=== PATIENT | female | born 1975 | race Caucasian/White ===

== ENCOUNTER 2021-04-14 10:04 | Day surgery (SDC) | payer SELFPAY ==
--- NOTE | 2021-04-10 15:13 | NURSING ---
Pt states her D-dimer has been elevated; her PCP and [facility] are aware. Pt asks if the D-dimer will be checked with her other lab work that is to be ordered for 04/13/21. Dr Ludwig notified. No repeat D-dimer needed.
--- NOTE | 2021-04-13 11:16 | HP.PCM_ITS ---
History and Physical Date of Admission: 04/14/21 NAME: Kalyani Navarrete [facility] NO: [id number] DATE: 03/09/2021? PRESENTING COMPLAINT Kalyani Navarrete is a 46 year old female presents with complaint of epigastric abdominal pain that radiates to the right side. She denies nausea/emesis. She denies fevers. She denies constipation/diarrhea. She states that the pain is a severe dull ache with occasional sharp twinges. She also had a fullness discomfort and this sometimes causes shortness of breath because she can't take a deep breath due to the pain. She states that this began worsening about two weeks ago, but she had minor episodes prior to this. She denies biliary obstructive symptoms such as jaundice/icterus. HIDA scan 03/05/2021 EF 5% US RUQ 07/29/2011 - cholelithiasis with mild gallbladder wall thickening ? CURRENT MEDICATIONS ? PARoxetine (PAXIL) 20 mg tablet Take 1 tablet by mouth once daily. 30 tablet 5 ? ALLERGIES: Patient has no known allergies. ?? PAST MEDICAL HISTORY Calculus of gallbladder without mention of cholecystitis or obstruction ? Calculus of kidney 10/14/2007 Dysthymic disorder ? Depression (non-psychotic) Thrombosed external hemorrhoid 03/21/2010 ? PAST SURGICAL HISTORY MIRENA ? 2013 PAST SURGICAL HISTORY OF? thrombosed hemorrhoid - s/p removal ? FAMILY HISTORY ? Breast Cancer Mother? ONSET AGE 50 ? No Known Problems Sister ? ? other (Lyme disease) Sister ? ? No Known Problems Sister ? ? No Known Problems Brother ? ? No Known Problems Brother ? ? No Known Problems Brother ? ? No Known Problems Brother ? ? Diabetes Maternal Grandmother ? ? Hypertension Maternal Grandmother ? ? Stroke Maternal Grandfather ? ? Prostate Cancer Paternal Grandfather ? ?? SOCIAL HISTORY ? Smoking status: Never Smoker ? Smokeless tobacco: Never Used Vaping Use ? Vaping Use: Never used Substance Use Topics ? Alcohol use: No ? Drug use: No ?? REVIEW OF SYSTEMS: General - denies fevers, denies anorexia, denies weight loss Cardiovascular - denies chest pain, denies history of [place] Pulmonary - denies shortness of breath, denies coughing up blood Gastrointestinal - see HPI, denies hematemesis, notes occasional blood on toilet paper from hemorrhoids Neurological - denies seizures, denies chronic numbness/weakness of extremities Genitourinary - has had kidney stones, denies burning with urination, denies blood in urine Hematological - denies spontaneous/prolonged bleeding Skin - denies nonhealing skin wounds Musculoskeletal - denies chronic joint pain Endocrine - denies diabetes, no thyroid problems Psychological ? denies hallucinations ?? PHYSICAL EXAMINATION Ht: 5'8 Wt: 236# General: alert and appropriate, in no distress and well-hydrated, well nourished, Psych: Appropriate mood and interaction Skin: no rash noted, Head: normocephalic, no abnormality or lesion noted, Eyes: visual acuity is grossly normal, no injection, and EOMI, Ears: external ears normal without erythema or edema, Nose: external nose normal without rhinorrhea, Oropharynx: moist mucus membranes Neck: full ROM, no cervical LNs noted, Respiratory: breathing non-labored, and no grunting/flaring/retractions, Chest: equal chest rise with normal respiratory effort, Abdomen: flat appearing. Visible protrusions or hernias: No Incisions/scars: None Areas of pain/tenderness: none noted Neuro: Patient sitting with normal appearing strength and coordination. No focal motor deficits. ?? IMPRESSION cholelithiasis ? PLAN I have discussed the above with the patient. I have offered laparoscopic cholecystectomy, possible cholangiograms I have explained the procedure to the patient. I have counseled the patient as to the risks of the procedure, including but not limited to: infection, bleeding, injury to any blood vessels/nerves, scar tissue, intraabdominal abscess/bleeding, injury to any intraabdominal organs such as liver/spleen, injury to the common bile duct/biliary tree, bile leak, trocar hernias, wound infections,complications of anesthesia, etc. ? the patient understands. ? The patient was offered a surgery/procedure . The provider and patient have discussed in detail the risk of exposure to and/or potential harm posed by the COVID-19 virus with having a surgery/procedure at this time versus the risk of? delaying the surgery/procedure. It is not possible to know either the risk of delaying the surgery or procedure or chance of getting an infection with perfect accuracy, but a joint decision was made between the patient and the provider ?to proceed at this time with the scheduled surgery/procedure. The patient wishes to proceed. I have answered all questions to the patient?s satisfaction and the patient has no further questions. ? ? ? Ciara Alan MD NAME: Kalyani Khadar [facility] NO: [id number]
--- NOTE | 2021-04-13 12:22 | EKG12_ITS ---
Test Reason : PRE OP Blood Pressure : / mmHG Vent. Rate : 085 BPM Atrial Rate : 085 BPM P-R Int : 144 ms QRS Dur : 080 ms QT Int : 366 ms P-R-T Axes : 061 002 029 degrees QTc Int : 435 ms Normal sinus rhythm Normal ECG Confirmed by QUE FLORENCE, NAZANIN ([id number]), newspaper photo editor EDGAR GRAHAM ([id number]) on 04/14/2021 8:39:58 AM Referred By: Ciara Alan Confirmed By:NAZANIN GREY MD
[2021-04-13 13:32] LABS: Hematocrit 39.5 % (37-47); Mean Corp Hgb Conc 32.9 g/dL (32-36); Mean Corpuscular Hgb 29.5 pg (27.0-32.0); Mean Corpuscular Volume 89.8 fL (81-99); Mean Platelet Vol. 10.1 fl (6.2-12.0); Platelet Count 253 K/mm3 (150-450); RBC Distribution Width CV 12.8 % (11.6-14.6); RBC Distribution Width SD 41.7 fl (35.1-43.9)
[2021-04-13 13:55] LABS: Anion Gap 3 (5-15); BUN 10 mg/dL (7-18); BUN/Creat Ratio 12.2 RATIO (10-20); Calcium,Total 8.7 mg/dL (8.5-10.1); Chloride 103 mmol/L (98-107); Creatinine, Serum 0.82 mg/dL (0.55-1.02); EST Glomerular Filtration Rate 80 mL/min (>60); Est Glom Filt Rate - Afr Amer 97 mL/min (>60); Glucose 79 mg/dL (74-106); Potassium 4.1 mmol/L (3.5-5.1); Sodium Level 139 mmol/L (136-145)
[2021-04-14] VITALS (9 sets, daily range): BP systolic 105–132; BP diastolic 55–80; PULSE 82–94; RESP 14–16; TEMP 36–37; O2SAT 92–98; BMI 37.3
--- NOTE | 2021-04-14 | GALL_PTH ---
PATIENT: STEVEN ROGERS LOC: [facility] [place] U#:[id number] AGE/SX: 46/F ROOM: RE04/14/[address]: Dr. Ciara Alan MD : 1975 BED: DIS: 04/14/2021 SPEC #: [id number] RECD: 04/14/21 13:38 STATUS: KYMBERLY REWilman #: [id number] JAYME: 04/14/21 00:[address]: Ciara Alan DEPT: SURGICAL PATHOLOGY RECD BY: Carlos Rossi ENTERED: 04/15/21 07:52 SP TYPE: QUITA DAVIDSON DR: Dr. Albino Sims DO Tissues: Gallbladder, NOS Procedures: Surgery Specimen Level III HEADER OPERATION: Laparoscopic cholecystectomy with IOC PRE-OP DIAGNOSIS: RUQ abdominal pain, abnormal HIDA scan TISSUE SUBMITTED: Gallbladder MICROSCOPIC DIAGNOSIS Gallbladder, cholecystectomy: Chronic cholecystitis and cholelithiasis. AM:petros 04/16/2021 MICROSCOPIC DESCRIPTION Slides are reviewed. GROSS DESCRIPTION Received is one container labeled with the patient's name and designated gallbladder. The specimen consists of a gallbladder measuring 8 cm in length and up to 3 cm in diameter. The external surface is pink-marcos, smooth and glistening for the most part. Focally it is granular, hemorrhagic and contains cautery artifact. The gallbladder contains green-yellow mucoid bile and one mulberry, ovoid, greenish-yellow stone measuring 1.2 cm in greatest dimension. The mucosa is bile-stained and without any mass lesions. The gallbladder wall measures up to 0.3 cm in thickness. It Quality Assurance Analyst sections from the gallbladder and the cystic duct are submitted in one cassette. / SJ:rg 04/15/21 TC:3 [facility]: [id number]
[2021-04-14] MEDS: Lactated Ringers 1,000 ML 75 ML IV ×2 (09:50→12:30)
[2021-04-14 10:34] LABS: Internal QC Validated? YES +Cl - CLEAR BKGD; Pregnancy, Urine Negative Negative
--- NOTE | 2021-04-14 11:45 | PCM.OPRPT ---
Report of Operation Date of Procedure: 04/14/21 Pre-Operative Diagnosis: RUQ abdominal pain, abnormal HIDA scan Post-Operative Diagnosis: same Surgery/Procedure Performed:: laparoscopic cholecystectomy with cholangiograms Description of Surgical Findings:: normal IOC Surgeon: Ciara Alan graduating machine operator: Macy Mcclendon Type of Anesthesia: General Anesthesiologist: Lyndon Phoenix Specimen's removed: gallbladder and contents Drains: none Estimated Blood Loss (mL): < 10 ml Fluids Replaced: 1600 ml RL Description of Procedure: After informed consent was given, the patient was brought to the Operating Room. Appropriate time out protocol was followed. The patient was placed in the supine position. The patient was then placed under general endotracheal anesthesia by the anesthesia provider. The abdomen was then prepped with a sterile surgical skin preparation and sterile surgical drapes were placed. An area superior to the umbilical dimple was grasped with penetrating clamps and the skin and subcutaneous tissues were infiltrated with 0.25% marcaine with epinephrine. A skin incision was then made with a 15 blade scalpel. The anterior abdominal wall was elevated and an 11 mm trocar was placed in the patient's abdomen via a ventral hernia that was just superior to the umbilical dimple. A CO2 pneumoperitoneum was then created. A 10mm laparoscope was then inserted into the trocar and careful attention was directed to the intraabdominal contents. There was no evidence of injury to any intraabdominal organs from insertion of the trocar. Under direct visualization, a 5mm subxiphoid trocar and two lateral 5mm right subcostal trocars were placed. The skin and subcutaneous tissues at these sites were infiltrated with 0.25% marcaine with epinephrine prior to placement of these trocars. Attention was then directed to the right upper quadrant of the abdomen. Graspers were placed in the lateral trocars to grasp the distal aspect of the gallbladder and direct it cephalad and to grasp the gallbladder at Palomares?s pouch and direct it laterally. Dissection then began on the proximal gallbladder continuing down to the area of the triangle of Calot to bluntly dissect out the cystic duct. The neck of the gallbladder was identified and blunt dissection continued to dissect out a segment of the cystic duct. A clip was then placed on the neck of the gallbladder. A small ductotomy was then made. A Ranfac catheter was brought in through a separate skin incision and placed into the cystic duct. An intraoperative cholangiogram was performed under fluoroscopy. The xray revealed no lesions in the common bile duct, arborization of the biliary tree, and good flow into the duodenum. The Ranfac catheter was then removed and two clips were placed proximal to the ductotomy and the cystic duct was then transected. The cystic artery was visualized and bluntly isolated and then two clips were placed proximally and one clip distally and then it was transected between the proximal and distal clips. The gallbladder was then from the liver bed using electrocautery. Once from the liver bed, it was brought out via the umbilical port, in an Endobag. It was then forwarded to pathology for analysis. The liver bed was carefully examined. There was no evidence of bile leakage or bleeding. The cystic duct stump and cystic artery stump had their clips intact and there was no evidence of bile leakage or bleeding. The remainder of the abdomen was grossly normal. The CO2 was released and all trocars removed intact. The periumbilical fascia was approximated with a [id number] 0 vicryl suture. All skin incision were closed with 4-0 monocryl in a subdermal fashion. Cavilol and Steristrips were used to reinforce the skin closure. Sterile dressings were applied to all wounds. Sponge, needle and instrument count was verified and correct at time of skin closure. The patient was extubated and brought to the Recovery Room in stable condition. Complications none noted Admit VTE Documentation VTE Present on Admission: Yes VTE Mechan Device Prophylaxis: SCD's
--- NOTE | 2021-04-14 12:26 | RAD_ITS ---
STUDY: INTRAOPERATIVE CHOLANGIOGRAM. REASON FOR EXAM: Female, 46 years old. PAIN FLUOROSCOPY TIME (if supplied): ( 3.4 seconds ) minutes/seconds. One image was submitted. TECHNIQUE: An intraoperative cholangiogram was performed by the surgeon. Imaging was submitted. COMPARISON: None. FINDINGS: The visualized intrahepatic biliary ducts are unremarkable. The proximal portion of the common bile duct is unremarkable. The distal portion of the common bile duct is not well seen although contrast is seen in the duodenum. RAD/Cholangiogram/ O R,Initial IMPRESSION: The distal portion of the common bile duct is not well visualized although contrast is seen in the duodenum. Electronically Signed: Andriy Santiago MD at 14:31 EDT , Service support ,
--- NOTE | 2021-04-14 13:11 | EX.PCM.DISCH ---
Discharge Instructions Follow Up Care Test Results: Test results from this visit will be discussed in further detail at your follow-up appointment, if applicable. Discharge Plan Admission Attending Provider: Ciara Alan Primary Care Provider: Albino Sims Instructions Additional Instructions / Restrictions: Recommended pain control regimen - May take 600 mg ibuprofen (Motrin) and then in 3-4 hours, may take 650 mg acetaminophen (Tylenol), then in 3-4 hours may take 600 mg ibuprofen, then in 3-4 hours may take 650 mg acetaminophen and so on for 2-3 days May take narcotic pain medication for pain that is not controlled by above and at night for comfort through the night Leave dressings in place May shower, do not scrub in the areas of the dressings as they may unravel. If they become overly soiled you may remove them but leave incision site open to air. Do not soak - no tub baths/swimming Ice applied to areas of discomfort may help No lifting/pushing/pulling greater than 20 pounds for two weeks. Regular diet as tolerated, drink plenty of fluids. Avoid carbonated beverages for a few days as this will cause abdominal bloating and thus discomfort after our surgery. Please call my office for an appointment to see me in 1-2 weeks. Office number is and ask the hoisting machine operator for the general surgery nurses desk Discharge Orders/Prescriptions Prescriptions: New hydrocodone-acetaminophen 5-325 mg tablet 1 tab PO Q8H 5 Days Qty: 15 RF: 0 No Action buspirone 5 mg Tablet 5 mg PO DAILY PRN PRN (Reason: Anxiety) RF: 0 paroxetine HCl 20 mg Tablet 20 mg PO DAILY RF: 0 Referrals / Follow Up: Albino Sims DO [Primary Care Provider] - Disposition Disposition (needs filled in before D/C Order can be placed): Home, Self Care
[2021-04-14] MEDS: HYDROcodone Bitartrate/Apap 5/325 Tablet PO (15:10)
== END 2021-04-14 15:55 | disposition home or self-care (01) ==
LOC: SDC 10:09 → AC 10:10
PROVIDERS: Anesthesiology; PCP Student in an Organized Health Care Education/Training Program; Referring Provider Surgery; Visit Provider Surgery
PROC: (CPT 47610; principal; 2021-04-14 11:25)
DX: K80.10 Calculus of gallbladder with chronic cholecystitis without obstruction (principal); K21.9 Gastro-esophageal reflux disease without esophagitis; F41.9 Anxiety disorder, unspecified; F32.9 Major depressive disorder, single episode, unspecified; Z79.899 Other long term (current) drug therapy
CPT/HCPCS: 47563; 36415; 74300; 76000; 80048; 81025; 85027; 87426; 88304; 93005; C9803; J7120; A4216; J2405

== ENCOUNTER 2022-02-09 12:00 | Emergency (ER) | payer OTHER, SELFPAY ==
[2022-02-09 12:00] VITALS: BP 141/88; PULSE 92; RESP 18; TEMP 36.6; O2SAT 99; BMI 37.5
--- NOTE | 2022-02-09 12:21 | RAD_ITS ---
STUDY: X-RAY CHEST REASON FOR EXAM: Female, 47 years old. chest pain shortness of breath for 2 days TECHNIQUE: Frontal portable view of the chest COMPARISON: None. FINDINGS: The lungs are clear and expanded. There is no demonstrated pleural abnormality. Normal size heart. Normal mediastinum and mayra. Normal visualized pulmonary arteries. Normal visualized aortic arch and descending thoracic aorta. Normal visualized thoracic spine. Normal visualized ribs, clavicles, and shoulders. There is no demonstrated abnormality of the visualized soft tissue structures of the upper abdomen. RAD/Chest 1 View (Portable) IMPRESSION: Normal x-ray examination of the chest. Electronically Signed: Doris Garcia MD at 13:00 EDT ,
--- NOTE | 2022-02-09 12:21 | EKG12_ITS ---
Test Reason : CP Blood Pressure : / mmHG Vent. Rate : 091 BPM Atrial Rate : 091 BPM P-R Int : 146 ms QRS Dur : 080 ms QT Int : 362 ms P-R-T Axes : 059 -01 019 degrees QTc Int : 445 ms Normal sinus rhythm Normal ECG Confirmed by KEYONA FLORENCE, DOMENIC ([id number]), editor index EDGAR GRAHAM ([id number]) on 02/11/2022 7:21:40 AM Referred By: PL/AR Confirmed By:DOMENIC RAND MD
--- NOTE | 2022-02-09 12:21 | ED.VIS.CHEST ---
HPI History of Present Illness Chief Complaint: Chest Pain Narrative Narrative: Patient denies significant past medical history presents with chest pain that she has had for the last 2 days. Its been relatively constant. She describes it as a pressure sensation in the substernal area sometimes radiating up and down. Also, sometimes it goes to the left side of her chest. She denies any fevers but has had occasional chills. No cough. She feels short of breath at times. No diaphoresis. No nausea or vomiting. No abdominal pain or swelling of her legs. She denies any early coronary artery disease in her family. No exacerbating or alleviating factors to her chest pressure. [facility] Medical History Acute bronchitis, unspecified Anxiety Depression Encounter for screening for COVID-19 Gallbladder attack Gastric reflux History of cardiac monitoring History of COVID-19 History of irregular heartbeat Non-smoker Wears contact lenses Home Medications buspirone 5 mg PO DAILY PRN PRN 04/10/21 [History Last Taken Unknown] paroxetine HCl 20 mg PO DAILY 04/10/21 [History Last Taken Unknown] hydrocodone-acetaminophen 1 tab PO Q8H 5 Days #15 tab 04/14/21 [Rx Last Taken Unknown] amoxicillin 875 mg-potassium clavulanate 125 mg tablet 1 tab PO BID #20 tab 09/30/21 [Rx Last Taken Unknown] Allergy/AdvReac Type Severity Reaction Status Date / Time epidural med Allergy Other Uncoded 02/09/22 12:01 Family History Mother Breast cancer Surgical History History of History of wisdom tooth extraction Social History Smoking Status: Never smoker alcohol intake: never substance use type: does not use ROS ROS ED ROS Narrative Constitutional: No fever, rare chills. HEENT: No sore throat. No neck pain. No loss of vision. No rhinorrhea. Cardiovascular: Midsternal chest pressure, no palpitations. No pedal edema. Respiratory: No cough, no shortness of breath. Abdominal: No abdominal pain. No nausea. No vomiting. Genitourinary: No dysuria. No hematuria. Musculoskeletal: No myalgias. No arthralgias. Neurologic: No headaches. No dizziness. No lightheadedness. Skin: No rash. No change in color. Psychiatric: No depression. No anxiety. EXAM Physical Exam Narrative Exam Narrative: Afebrile. Vital signs noted. HEENT: Normocephalic. Atraumatic. PERRL, EOMI. Neck soft and supple. No point tenderness or step off. Cardiovascular: Regular rate and rhythm. No murmurs, rubs, or gallops appreciated. Respiratory: No tachypnea. Lungs clear to auscultation bilaterally. Gastrointestinal: Abdomen soft, nontender, with normoactive bowel sounds. No rebound or guarding. Neurological: Awake. Alert. Nonfocal, nonlateralizing. Skin: No rash. Normal color. No pallor. Musculoskeletal: No pedal edema. Full range of motion extremities. Const Vital Signs: 02/09/22 12:00 02/09/22 12:56 02/09/22 13:20 Temperature 97.8 F Temperature Source Temporal Pulse Rate 92 79 Respiratory Rate 18 20 H Blood Pressure 141/88 H 120/78 Blood Pressure Mean 105 92 Pulse Ox 99 98 Oxygen Delivery Method Room Air Room Air Room Air Heart Score History: Slightly/Non-Suspicious ECG: Normal Age: >45 - <65 years Risk Factors: No Risk Factors Troponin: </= Normal Limit Score: 1 MDM MDM MDM Narrative Medical decision making narrative: Chest pain work-up was pursued. Her EKG demonstrates normal sinus rhythm at 91 bpm without ectopy or acute ST changes. CBC shows normal white count of 7.3, hemoglobin normal at 14.1. Platelet count is normal at 259. D-dimer negative at 0.47. Electrolyte panel is grossly unremarkable except for glucose appropriately elevated at 110 with a normal anion gap of 5. Creatinine normal at 0.9. Lipase normal at 87. High-sensitivity troponin at 0-hour is less than 3. As her onset of symptoms was greater than 3 hours, and up to 2 days ago, I do feel that she has been ruled out by biomarkers for an acute coronary syndrome. Her chest x-ray in 1 view shows no acute process and it was interpreted by myself. Her pulse ox is normal. At this point in time, with a heart score of 1, I feel that she can be discharged safely home with follow-up to her primary care physician. I did discuss with her that there may be some anxiety component to this as she feels this way as well. Return instructions to the emergency department were reviewed. Disposition is discharged home in stable condition. Lab Data Attestation: I reviewed the patient's lab results. Labs: Laboratory Results - last 24 hr 02/09/22 02/09/22 02/09/22 12:32 12:32 12:32 WBC 7.3 RBC 4.70 Hgb 14.1 Hct 42.5 MCV 90.4 MCH 30.0 MCHC 33.2 RDW Std Deviation 42.5 RDW Coeff of Dominick 12.8 Plt Count 259 MPV 9.9 Immature Gran % (Auto) 0.300 Neut % (Auto) 54.8 Lymph % (Auto) 33.9 Holt % (Auto) 7.7 Eos % (Auto) 2.6 Baso % (Auto) 0.7 Absolute Neuts (auto) 4.0 Absolute Lymphs (auto) 2.48 Nucleated RBC % 0 D-Dimer Quant (PE/DVT) 0.47 Sodium 138 Potassium 3.9 Chloride 105 Carbon Dioxide 28.0 Anion Gap 5 BUN 12 Creatinine 0.91 Estim Creat Clear Calc 74.32 Est GFR (MDRD) Af Amer 85 Est GFR (MDRD) Non-Af 71 BUN/Creatinine Ratio 13.2 Glucose 110 H Calcium 8.8 Troponin I High Sens Lipase 87 02/09/22 12:32 WBC RBC Hgb Hct MCV MCH MCHC RDW Std Deviation RDW Coeff of Dominick Plt Count MPV Immature Gran % (Auto) Neut % (Auto) Lymph % (Auto) Holt % (Auto) Eos % (Auto) Baso % (Auto) Absolute Neuts (auto) Absolute Lymphs (auto) Nucleated RBC % D-Dimer Quant (PE/DVT) Sodium Potassium Chloride Carbon Dioxide Anion Gap BUN Creatinine Estim Creat Clear Calc Est GFR (MDRD) Af Amer Est GFR (MDRD) Non-Af BUN/Creatinine Ratio Glucose Calcium Troponin I High Sens < 3 L Lipase Radiography Diagnostic Testing: Clinical Impression(s) from Imaging Studies Chest X-Ray 02/09/22 12:21 IMPRESSION: Normal x-ray examination of the chest. Electronically Signed: Doris Garcia MD at 13:00 EDT , Discharge Plan Triage Chief Complaint: Chest Pain ED Provider: Benji Urena Dx/Rx/DC Orders Clinical Impression: Chest tightness, Chest pain Instructions: ED Chest Pain, Noncardiac, ED Chest Pain, Uncertain Cause Prescriptions: No Action amoxicillin-pot clavulanate 875-125 mg tablet 1 tab PO BID Qty: 20 RF: 0 buspirone 5 mg Tablet 5 mg PO DAILY PRN PRN (Reason: Anxiety) RF: 0 paroxetine HCl 20 mg Tablet 20 mg PO DAILY RF: 0 hydrocodone-acetaminophen 5-325 mg tablet 1 tab PO Q8H 5 Days Qty: 15 RF: 0 Primary Care Provider: Albino Sims Referrals: Albino Sims DO [Primary Care Provider] - 3-5 Days Disposition Disposition: Home, Self Care
[2022-02-09 12:40] LABS: Absolute Lymphocyte Count 2.48 X10^3/uL (0.83-4.51); Basophil# 0.05 X10^3/uL; Basophil% 0.7 % (0-1); Eosinophil# 0.19 X10^3/uL; Eosinophils% 2.6 % (0-5); Hematocrit 42.5 % (37-47); Hemoglobin 14.1 g/dL (12.0-15.0); Lymphocyte # 2.48 X10^3/ul (0.83-4.51); Lymphocyte % 33.9 % (19-41); Mean Corp Hgb Conc 33.2 g/dL (32-36); Mean Corpuscular Volume 90.4 fL (81-99); Mean Platelet Vol. 9.9 fl (6.2-12.0); Monocyte# 0.56 X10^3/uL; Monocyte% 7.7 % (0-10); NRBC Flagged by Analyzer 0 % (0-5); Neutrophil # 4.01 X10^3/uL (2.7-7.7); Neutrophil % 54.8 % (47-70); Platelet Count 259 K/mm3 (150-450); RBC Distribution Width CV 12.8 % (11.6-14.6); RBC Distribution Width SD 42.5 fl (35.1-43.9); White Blood Count 7.3 K/mm3 (4.4-11.0)
[2022-02-09 12:50] LABS: D-Dimer Quantitative (DVT/PE) 0.47 FEU/ug/m (0.27-0.49)
[2022-02-09 12:52] LABS: Anion Gap 5 (5-15); BUN 12 mg/dL (7-18); BUN/Creat Ratio 13.2 RATIO (10-20); Calcium,Total 8.8 mg/dL (8.5-10.1); Chloride 105 mmol/L (98-107); Creatinine, Serum 0.91 mg/dL (0.55-1.02); EST Glomerular Filtration Rate 71 mL/min (>60); Est Glom Filt Rate - Afr Amer 85 mL/min (>60); Estimated Creatinine Clearance 74.32 ml/min; Glucose 110 mg/dL (74-106); Lipase 87 U/L (73-393); Potassium 3.9 mmol/L (3.5-5.1); Sodium Level 138 mmol/L (136-145)
[2022-02-09] MEDS: Aspirin 81 MG TAB.CHEW 324 MG PO (12:55)
[2022-02-09 13:18] LABS: Troponin-I HS (w/2H Reflex) < 3 pg/mL (3.0-54.0)
[2022-02-09 13:20] VITALS: BP 120/78; PULSE 79; RESP 20; O2SAT 98
[2022-02-09 14:12] VITALS: BP 124/84; PULSE 77; RESP 14
[2022-02-09 15:00] LABS: Reflex Troponin-HS? (from REC) Y
== END 2022-02-09 14:15 | disposition home or self-care (01) ==
PROVIDERS: Emergency Provider Emergency Medicine; PCP Student in an Organized Health Care Education/Training Program; Visit Provider Emergency Medicine
DX: R07.89 Other chest pain (principal); Z86.16 Personal history of COVID-19; K21.9 Gastro-esophageal reflux disease without esophagitis; F41.9 Anxiety disorder, unspecified; F32.A Depression, unspecified; Z79.899 Other long term (current) drug therapy
CPT/HCPCS: 71045; 80048; 83690; 84484; 85025; 85379; 93005; 99284; A4216

== ENCOUNTER 2023-04-23 14:31 | Emergency (ER) | payer OTHER, SELFPAY ==
[2023-04-23 14:32] VITALS: BP 126/72; PULSE 99; RESP 16; TEMP 36.6; O2SAT 99; BMI 33.6
--- NOTE | 2023-04-23 14:45 | EKG12_ITS ---
Test Reason : DIZZY/CP Blood Pressure : / mmHG Vent. Rate : 091 BPM Atrial Rate : 091 BPM P-R Int : 156 ms QRS Dur : 084 ms QT Int : 356 ms P-R-T Axes : 063 -08 022 degrees QTc Int : 437 ms Normal sinus rhythm Normal ECG Confirmed by ELEANOR FLORENCE, BOSTON ([id number]), technical editor EDGAR GRAHAM ([id number]) on 04/25/2023 11:28:45 A M Referred By: PL Confirmed By:ALBERTINA WEBSTER MD
--- NOTE | 2023-04-23 14:49 | EX.ED.DYSGE1 ---
HPI <VY Hereida - Last Filed: 04/23/23 18:12> History of Present Illness Chief Complaint: Dizziness Narrative Narrative: Patient presenting today with feelings of weakness, lightheadedness, and feeling like her heart is racing at times. She reports that the symptoms are random and she has been experiencing them for at least the past month. She also reports that at times she will get an annoying left-sided chest pain that comes and goes quickly. She will occasionally get shortness of breath on exertion. She felt like the symptoms today were worse. She also reports a history of anxiety and panic attacks and states she feels how she normally feels when she is having a panic attack but she is not stressed or anxious about anything at the moment. She denies any fever, chills, abdominal pain, nausea, and vomiting. PFSH <VY Heredia - Last Filed: 04/23/23 18:12> PFSH Medical History Acute bronchitis, unspecified Anxiety Depression Encounter for screening for COVID-19 Gallbladder attack Gastric reflux History of cardiac monitoring History of COVID-19 History of irregular heartbeat Non-smoker Wears contact lenses Home Medications buspirone 5 mg tablet 5 mg PO DAILY PRN PRN Anxiety 04/10/21 [History Last Taken Unknown] paroxetine HCl 20 mg tablet 20 mg PO DAILY anxiety 04/10/21 [History Last Taken Unknown] hydrocodone-acetaminophen 5-325mg 5mg-325mg 1 tab PO Q8H 5 days #15 tabs 04/14/21 [Rx Last Taken Unknown] amoxicillin 875 mg-potassium clavulanate 125 mg tablet 1 tab PO BID #20 tabs 09/30/21 [Rx Last Taken Unknown] Allergy/AdvReac Type Severity Reaction Status Date / Time epidural med Allergy Other Uncoded 02/09/22 12:01 Family History Mother Breast cancer Surgical History History of History of wisdom tooth extraction Social History Smoking Status: Never smoker alcohol intake: never substance use type: does not use ROS <VY Heredia - Last Filed: 04/23/23 18:12> ROS ED Constitutional Constitutional ED: Denies chills or fever(s) Eyes Eyes: Denies change in vision Cardiovascular Cardiovascular: Reports chest pain and racing heartbeat Respiratory/Chest Respiratory/Chest: Reports dyspnea on exertion; Denies cough Gastrointestinal Gastrointestinal: Denies abdominal pain, nausea or vomiting Musculoskeletal Musculoskeletal: Denies arthralgias or myalgias Integumentary Denies abscess, Abrasions or rash Neurologic Neurologic: Denies dizziness or weakness EXAM <VY Heredia - Last Filed: 04/23/23 18:12> Physical Exam Const Vital Signs: 04/23/23 14:32 04/23/23 14:39 Temperature 97.8 F Temperature Source Temporal Pulse Rate 99 Respiratory Rate 16 Respiratory Effort Short of Breath Blood Pressure 126/72 H Blood Pressure Mean 90 Pulse Ox 99 Oxygen Delivery Method Room Air Positive well nourished, well developed and no apparent distress General Appearance ED: well developed HEENT Reports normocephalic and head/scalp atraumatic Mouth ED: Yes moist mucous membranes normal Eyes PERRL and EOMs intact bilaterally Neck full ROM and supple Chest Wall inspection of chest normal Resp normal respiratory effort and clear to auscultation bilaterally Cardio regular rate and regular rhythm GI soft to palpation, non-tender, non-distended and no masses Back/Spine normal ROM and normal to inspection Extremity normal to inspection and full ROM Neuro oriented x3, CN's II-XII intact bilaterally, moves all extremities, no focal motor deficits and no sensory deficits noted Sensorium / Orientation: awake and alert Psych mental status grossly normal and thought process normal Skin no rashes or lesions noted and no wounds <Benji Urena MD - Last Filed: 04/24/23 00:31> Physical Exam Const Vital Signs: 04/23/23 14:32 04/23/23 14:39 Temperature 97.8 F Temperature Source Temporal Pulse Rate 99 Respiratory Rate 16 Respiratory Effort Short of Breath Blood Pressure 126/72 H Blood Pressure Mean 90 Pulse Ox 99 Oxygen Delivery Method Room Air MDM <VY Heredia - Last Filed: 04/23/23 18:12> MDM MDM Narrative Medical decision making narrative: Patient presenting due to intermittent lightheadedness, left-sided annoying chest pain, and weakness that she has had for the past month. She felt like the symptoms were worse today. She has a history of anxiety and panic attacks and states that it feels like she is having a panic attack but she is not anxious about anything at the moment. She is well-appearing and in no acute distress, vitals are unremarkable. She reports, I just want to make sure it is not my heart. She denies a cardiac history. No history of blood clots, no recent surgery/procedures or travel. She is PERC negative. Chest pain work-up was obtained and overall is unremarkable. Chest x-ray negative for any acute cardiopulmonary findings. I have encouraged her to follow-up with her PCP and she has been given return instructions. She will be discharged home in stable condition and is comfortable with plan. I do feel that patient's symptoms have a large anxiety component. Lab Data Attestation: I reviewed the patient's lab results. Labs: Laboratory Results - last 24 hr 04/23/23 14:47 WBC 7.7 RBC 4.71 Hgb 14.0 Hct 42.8 MCV 90.9 MCH 29.7 MCHC 32.7 RDW Std Deviation 43.1 RDW Coeff of Dominick 12.9 Plt Count 231 MPV 9.9 Immature Gran % (Auto) 0.100 Neut % (Auto) 54.1 Lymph % (Auto) 35.5 Gentry % (Auto) 7.5 Eos % (Auto) 2.2 Baso % (Auto) 0.6 Absolute Neuts (auto) 4.2 Absolute Lymphs (auto) 2.73 Nucleated RBC % 0 Sodium 138 Potassium 3.5 Chloride 106 Carbon Dioxide 26.0 Anion Gap 6 BUN 16 Creatinine 0.89 Estim Creat Clear Calc 75.17 Est GFR (MDRD) Af Amer 87 Est GFR (MDRD) Non-Af 72 BUN/Creatinine Ratio 18.0 Glucose 132 H Calcium 8.9 Troponin I High Sens 3 Radiography X-Ray: Read by ED Physician and Read by Radiologist Diagnostic Testing: Clinical Impression(s) from Imaging Studies Chest X-Ray 04/23/23 14:50 IMPRESSION: No radiographic evidence of acute cardiopulmonary disease. Electronically Signed: Riccardo Reed MD at 15:11 EDT , EKG Initial EKG: Comments: 91 bpm, normal sinus rhythm, no ST elevation, reviewed and interpreted by attending ED physician <Benji Urena MD - Last Filed: 04/24/23 00:31> [facility] Narrative Medical decision making narrative: Patient presenting due to intermittent lightheadedness, left-sided annoying chest pain, and weakness that she has had for the past month. She felt like the symptoms were worse today. She has a history of anxiety and panic attacks and states that it feels like she is having a panic attack but she is not anxious about anything at the moment. She is well-appearing and in no acute distress, vitals are unremarkable. She reports, I just want to make sure it is not my heart. She denies a cardiac history. No history of blood clots, no recent surgery/procedures or travel. She is PERC negative. Chest pain work-up was obtained and overall is unremarkable. Chest x-ray negative for any acute cardiopulmonary findings. I have encouraged her to follow-up with her PCP and she has been given return instructions. She will be discharged home in stable condition and is comfortable with plan. I do feel that patient's symptoms have a large anxiety component. I have personally performed a face to face assessment of the patient and have reviewed the PRINCESS Note. I performed a substantive portion of the visit including all aspects of the following. My hancock findings include: History is chest pain x1 month, fatigue. Worse today. Exam is afebrile. Vital signs noted. Regular rate and rhythm. Lungs clear to auscultation bilaterally. Abdomen soft and nontender with normoactive bowel sounds. Medical Decision Making check EKG. Check chest x-ray. Check labs. Previous ED visits reviewed. Follow-up primary care provider. Discharge. Other additions or changes: [None] History & Record Review Discussion w/independent historian: Patient Additional record(s) reviewed:: Prior ED visit and Prior labs Lab Data Labs: Laboratory Results - last 24 hr 04/23/23 14:47 WBC 7.7 RBC 4.71 Hgb 14.0 Hct 42.8 MCV 90.9 MCH 29.7 MCHC 32.7 RDW Std Deviation 43.1 RDW Coeff of Dominick 12.9 Plt Count 231 MPV 9.9 Immature Gran % (Auto) 0.100 Neut % (Auto) 54.1 Lymph % (Auto) 35.5 Gentry % (Auto) 7.5 Eos % (Auto) 2.2 Baso % (Auto) 0.6 Absolute Neuts (auto) 4.2 Absolute Lymphs (auto) 2.73 Nucleated RBC % 0 Sodium 138 Potassium 3.5 Chloride 106 Carbon Dioxide 26.0 Anion Gap 6 BUN 16 Creatinine 0.89 Estim Creat Clear Calc 75.17 Est GFR (MDRD) Af Amer 87 Est GFR (MDRD) Non-Af 72 BUN/Creatinine Ratio 18.0 Glucose 132 H Calcium 8.9 Troponin I High Sens 3 Radiography Diagnostic Testing: Clinical Impression(s) from Imaging Studies Chest X-Ray 04/23/23 14:50 IMPRESSION: No radiographic evidence of acute cardiopulmonary disease. Electronically Signed: Riccardo Reed MD at 15:11 EDT Reading Location ID and State: [facility] / [place] , Service support , Discharge Plan Triage Chief Complaint: Dizziness ED Midlevel Provider: Jackelyn Alvarez ED Provider: Benji Urena Dx/Rx/DC Orders Clinical Impression: Light-headedness, Anxiety, Chest pain Instructions: ED Chest Pain, Uncertain Cause, ED Dizziness, Uncertain Cause Prescriptions: No Action amoxicillin-pot clavulanate 875-125 mg tablet 1 tab PO BID Qty: 20 0RF buspirone 5 mg Tablet 5 mg PO DAILY PRN PRN (Reason: Anxiety) paroxetine HCl 20 mg Tablet 20 mg PO DAILY hydrocodone-acetaminophen 5-325 mg tablet 1 tab PO Q8H 5 Days Qty: 15 0RF Primary Care Provider: Albino Sims Referrals: Albino Sims DO [Primary Care Provider] - 3-5 Days Activity Restrictions/Additional Instructions: Please follow-up with your PCP and return for any worsening of symptoms. Disposition Disposition: Home, Self Care Discharge Date/Time: 04/23/23 15:41
--- NOTE | 2023-04-23 14:50 | RAD_ITS ---
EXAM: XR CHEST, 1 VIEW CLINICAL INDICATION: chest pain TECHNIQUE: Frontal view of the chest. COMPARISON: 4. FINDINGS: LUNGS AND PLEURAL SPACES: Unremarkable. No consolidation or edema. No pneumothorax. No effusion. HEART: Unremarkable. Cardiac silhouette not enlarged. MEDIASTINUM: Central airways and mediastinal contour are unremarkable. BONES/JOINTS: Unremarkable. SOFT TISSUES: Unremarkable. RAD/Chest 1 View (Portable) IMPRESSION: No radiographic evidence of acute cardiopulmonary disease. Electronically Signed: Riccardo Reed MD at 15:11 EDT ,
[2023-04-23 14:52] LABS: Absolute Lymphocyte Count 2.73 X10^3/uL (0.83-4.51); Absolute Neutrophil Count 4.2 X10^3/uL (2.0-7.7); Basophil# 0.05 X10^3/uL; Basophil% 0.6 % (0-1); Eosinophil# 0.17 X10^3/uL; Eosinophils% 2.2 % (0-5); Hematocrit 42.8 % (37-47); Lymphocyte # 2.73 X10^3/ul (0.83-4.51); Lymphocyte % 35.5 % (19-41); Mean Corp Hgb Conc 32.7 g/dL (32-36); Mean Corpuscular Hgb 29.7 pg (27.0-32.0); Mean Corpuscular Volume 90.9 fL (81-99); Mean Platelet Vol. 9.9 fl (6.2-12.0); Monocyte# 0.58 X10^3/uL; Monocyte% 7.5 % (0-10); NRBC Flagged by Analyzer 0 % (0-5); Neutrophil # 4.16 X10^3/uL (2.7-7.7); Neutrophil % 54.1 % (47-70); Platelet Count 231 K/mm3 (150-450); RBC Distribution Width CV 12.9 % (11.6-14.6); RBC Distribution Width SD 43.1 fl (35.1-43.9); Red Blood Count 4.71 M/mm3 (4.2-5.4); White Blood Count 7.7 K/mm3 (4.4-11.0)
[2023-04-23 15:13] LABS: Anion Gap 6 (5-15); BUN 16 mg/dL (7-18); Calcium,Total 8.9 mg/dL (8.5-10.1); Chloride 106 mmol/L (98-107); Creatinine, Serum 0.89 mg/dL (0.55-1.02); EST Glomerular Filtration Rate 72 mL/min (>60); Est Glom Filt Rate - Afr Amer 87 mL/min (>60); Estimated Creatinine Clearance 75.17 ml/min; Glucose 132 mg/dL (74-106); Potassium 3.5 mmol/L (3.5-5.1); Sodium Level 138 mmol/L (136-145); Troponin-I HS 3 pg/mL (3.0-54.0)
[2023-04-28 07:11] LABS: Bedside Glucose 176 mg/dL (74-106)
== END 2023-04-23 15:41 | disposition home or self-care (01) ==
LOC: ED 15:36
PROVIDERS: Physician Assistant; Emergency Provider Emergency Medicine; PCP Student in an Organized Health Care Education/Training Program; Visit Provider Emergency Medicine
DX: R42 Dizziness and giddiness (principal); R07.9 Chest pain, unspecified; F41.9 Anxiety disorder, unspecified; R06.09 Other forms of dyspnea
CPT/HCPCS: 71045; 80048; 82962; 84484; 85025; 93005; 99285; A4216